=== PATIENT | female | born 1940 | race Caucasian/White ===

== ENCOUNTER 2016-12-21 10:44 | Day surgery (SDC) | payer MEDICARE, OTHER ==
[~2016-12-21 10:44] MED LIST: Dexamethasone 4 MG/ML SDV ONE; Lactated Ringers 1,000 ML IV SCH; Lidocaine 1% 6 ML ONE; Lidocaine 1%/Sod Bicarbonate in NS 8.4% 1 ML Syringe IV PRN; Ondansetron 4 MG/2 ML SDV ONE; Propofol 200 MG/20 ML SDV ONE; Rocuronium 50 MG/5 ML Vial ONE; Sodium Chloride 0.9% 10 ML Syringe FLUSH PRN; fentaNYL 250 MCG/5 ML SDV ONE
--- NOTE | 2016-12-21 12:46 | PCM.PREANE ---
Preanesthetic Assessment - Anesthesia/Transfusion/Family Hx Anesthesia History: Prior Anesthesia Reaction (slight nausea) Family History of Anesthesia Reaction: No Transfusion History: No Prior Transfusion(s) - Review of Systems General: No Symptoms Pulmonary: No Symptoms Cardiovascular: No Symptoms Gastrointestinal: No symptoms Neurological: No Symptoms, Numbness (toes on right side) Other: Reports: None - Physical Assessment NPO Status Date: 12/21/16 NPO Status Time: 03:50 Pulse: 80 O2 Sat by Pulse Oximetry: 97 Respiratory Rate: 20 Blood Pressure: 151/58 Temperature: 36.8 C Vital Signs: Last Vital Signs Temp 36.8 C 12/21/16 10:50 Pulse 80 12/21/16 10:50 Resp 20 12/21/16 10:50 BP 151/58 H 12/21/16 10:50 Pulse Ox 97 12/21/16 10:50 Height: 1.57 m Weight: 70.896 kg ASA Class: 2 Mental Status: Alert & Oriented x3 Airway Class: Mallampati = 1 Dentition: Reports: [place](s), Bridge Thyro-Mental Finger Breadths: 3 Mouth Opening Finger Breadths: 3 ROM/Head Extension: Limited/Partial Lungs: Clear to auscultation, Normal respiratory effort Cardiovascular: Regular Rate, Regular Rhythm, No Murmurs - Lab Values: on chart - Imaging/EKG Impressions: EKG normal sinus rhythm - Allergies Allergies/Adverse Reactions: Allergies Allergy/AdvReac Type Severity Reaction Status Date / Time No Known Allergies Allergy Verified 12/21/16 12:03 - Blood Blood Available: No Product(s) Available: None - Anesthesia Plan Pre-Op Medication Ordered: None - Acknowledgements Anesthesia Type Planned: General Anesthesia Pt an Appropriate Candidate for the Planned Anesthesia: Yes Alternatives and Risks of Anesthesia Discussed w Pt/Guardian: Yes Pt/Guardian Understands and Agrees with Anesthesia Plan: Yes PreAnesthesia Questionnaire HEENT History: Reports: Cataract, Impaired vision Cardiovascular History: Reports: Hypertension Respiratory History: Reports: None Gastrointestinal History: Reports: GERD Other Gastrointestinal History: Colitis Genitourinary History: Reports: None 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: Musculoskeletal History: Reports: Arthritis, Osteoarthritis Neurological History: Reports: None Psychiatric History: Reports: None Endocrine/Metabolic History: Reports: Hypothyroidism Hematologic History: Reports: None Immunologic History: Reports: None Oncologic (Cancer) History: Reports: None Dermatologic History: Reports: None - Infectious Disease History Infectious Disease History: Reports: None - Past Surgical History Head Surgeries/Procedures: Reports: None HEENT Surgical History: Reports: Cataract surgery Cardiovascular Surgical History: Reports: None Respiratory Surgical History: Reports: None GI Surgical History: Reports: Colonoscopy Female Surgical History: Reports: None Endocrine Surgical History: Reports: None Neurological Surgical History: Reports: None Musculoskeletal Surgical History: Reports: Knee replacement Other Musculoskeletal Surgeries/Procedures:: Right total knee Oncologic Surgical History: Reports: None Dermatological Surgical History: Reports: None - SUBSTANCE USE Smoking Status *Q: Never Smoker Tobacco Use Within Last Twelve Months: No Second Hand Smoke Exposure: No Days Per Week of Alcohol Use: 0 Number of Drinks Per Day: 0 Total Drinks Per Week: 0 Recreational Drug Use History: No - HOME MEDS Home Medications: Home Meds Acetaminophen [Tylenol] 650 mg PO Q4H PRN 12/20/16 [History] Af Betafood 3 tab PO TID 12/20/16 [History] Aspirin/Calcium Carbonate/Mag [Aspirin Buffered 325 mg Tab] 325 mg PO BID [History] Calcium Carbonate/Vitamin D3 [Calcium 600 + Vit D 400 Softgl] 1 cap PO DAILY [History] Phytrophin 4 tab PO BEDTIME 12/20/16 [History] Vit A/C/E AC/Znox/Cupric Oxide [Eye Vitamin-Minerals Tablet] 1 tab PO DAILY [History] - CURRENT (IN HOUSE) MEDS Current Meds: Current Medications Lactated Ringer's (Ringers, Lactated) 1,000 mls @ 125 mls/hr IV ASDIRECTED [facility] Last Admin: 12/21/16 11:25 Dose: 125 mls/hr Lidocaine/Sodium Bicarbonate (Buffered Lidocaine 1% In Ns 8.4%) 0.25 ml IV ONETIME PRN PRN Reason: Prior to IV Start Last Admin: 12/21/16 11:24 Dose: 0.25 ml Sodium Chloride (Saline Flush) 10 ml FLUSH ASDIRECTED PRN PRN Reason: Keep Vein Open Discontinued Medications Dexamethasone (Dexamethasone) Confirm Administered Dose 4 mg .ROUTE .STK-MED ONE Stop: 12/21/16 09:44 Fentanyl (Sublimaze) Confirm Administered Dose 250 mcg .ROUTE .STK-MED ONE Stop: 12/21/16 10:39 Lidocaine HCl (Xylocaine-Mpf 1%) Confirm Administered Dose 6 mls @ as directed .ROUTE .STK-MED ONE Stop: 12/21/16 10:38 Ondansetron HCl (Zofran) Confirm Administered Dose 4 mg .ROUTE .STK-MED ONE Stop: 12/21/16 10:38 Propofol (Diprivan 20 Ml) Confirm Administered Dose 200 mg .ROUTE .STK-MED ONE Stop: 12/21/16 10:39 Rocuronium [place] (Zemuron) Confirm Administered Dose 50 mg .ROUTE .STK-MED ONE Stop: 12/21/16 09:44
[2016-12-21] MEDS ORDERED: LORazepam 2 MG/ML MDV IVPUSH ONE (13:00)
[2016-12-21] MEDS ORDERED: Neostigmine Methylsulfate 10 MG/10 ML MDV ONE (13:51)
--- NOTE | 2016-12-21 14:04 | PCM.POSTAN ---
POST ANESTHESIA ASSESSMENT - MENTAL STATUS Mental Status: alert, oriented - VITAL SIGNS Pulse Rate: 97 SaO2: 92 Resp Rate: 16 Blood Pressure: 157/59 Temperature: 37.3 C - RESPIRATORY Respiratory Status: respiratory rate WNL, airway patent, O2 saturation stable, supplemental oxygen - CARDIOVASCULAR CV Status: pulse rate WNL, blood pressure stable - GASTROINTESTINAL GI Status: no symptoms - PAIN Pain Score: 0 - POST OP HYDRATION Hydration Status: adequate & stable - OBSERVATIONS Free Text/Narrative:: no anesthesia complications noted
[2016-12-21] MEDS: fentaNYL 100 MCG/2 ML SDV IVPUSH PRN ×3 (14:10→14:52)
[2016-12-21] MEDS ORDERED: traMADol 50 MG Tab PO PRN (14:34)
[2016-12-21 16:10] VITALS: BP 145/53
--- NOTE | 2016-12-24 18:18 | PCM.OPNOTE ---
- General Post-Op/Procedure Note Date of Surgery/Procedure: 12/21/16 Operative Procedure(s): right total knee arthroplasty manipulation Pre Op Diagnosis: arthrofibrosis right total knee Post-Op Diagnosis: Same Anesthesia Technique: MAC Primary Surgeon: Matthieu Covington Anesthesia Provider: Brendan Bush EBL in mLs: 0 Complications: None Condition: Good
--- NOTE | 2016-12-24 19:59 | OR ---
DATE OF OPERATION: 12/21/2016 SURGEON: Matthieu Covington MD OPERATION PERFORMED: Right total knee arthroplasty manipulation. PREOPERATIVE DIAGNOSIS: Arthrofibrosis of right total knee. POSTOPERATIVE DIAGNOSIS: Arthrofibrosis of right total knee. ANESTHESIA: Technique, MAC. ANESTHESIA PROVIDER: Brendan Bush. OPERATOR CAVITY PUMP: None. ESTIMATED BLOOD LOSS: Not applicable. COMPLICATIONS: None. CONDITION: Stable. DESCRIPTION OF PROCEDURE: The patient was identified in the preop holding area. Proper site was marked and identified by the surgeon. The patient was taken back to the operating theater where after adequate anesthesia, a time-out was performed. Right lower extremity then had measurements done before manipulation, which was 4 to 72 degrees. Next, the right knee was manipulated in both extension and flexion. There was no real hard block to motion on flexion and easily be regained motion and after the end of the manipulation, I had 2 to 112 degrees of motion to the right knee with no block to motion with stable to varus and valgus stress throughout and no other signs of issues. At this time a Webril and an Chris were applied to the right lower extremity. The patient was sent to PACU in stable condition. MMODAL /[id number]
== END 2016-12-21 15:40 | disposition home or self-care (01) ==
LOC: JD.SDS 10:44
PROVIDERS: ATTEND Orthopaedic Surgery
DX: M24.661 Ankylosis, right knee (principal); Z79.82 Long term (current) use of aspirin; Z79.899 Other long term (current) drug therapy; Z96.651 Presence of right artificial knee joint; Z91.09 Other allergy status, other than to drugs and biological substances; R03.0 Elevated blood-pressure reading, without diagnosis of hypertension
CPT/HCPCS: 27570; A9270; J1100; J2405; J2710; J3010; J7120; 01380; J2704

== ENCOUNTER 2020-04-19 09:27 | Day surgery (SDC) | payer MEDICARE, OTHER ==
[~2020-04-19 09:27] MED LIST changes: +Bisacodyl 5 MG Tab PO PRN; -Dexamethasone 4 MG/ML SDV ONE; -Lidocaine 1% 6 ML ONE; +Lidocaine 1%/Sod Bicarbonate in NS 8.4% 1 ML Syringe IDERM PRN; -Lidocaine 1%/Sod Bicarbonate in NS 8.4% 1 ML Syringe IV PRN; +Magnesium Hydroxide 400 MG/5 ML Susp 30 ML Cup PO PRN; +Morphine 2 MG/ML SYRINGE IVPUSH PRN; +Morphine 8 MG, EPINEPHrine 0.3 MG, Cefuroxime 750 MG, Ketorolac 30 MG, Sodium Chloride ... PRN; +Naloxone 0.4 MG/ML SDV IVPUSH PRN; +Ondansetron 4 MG/2 ML SDV IVPUSH PRN; -Ondansetron 4 MG/2 ML SDV ONE; -Propofol 200 MG/20 ML SDV ONE; -Rocuronium 50 MG/5 ML Vial ONE; +Sennosides 8.6 MG Tab PO PRN; -fentaNYL 250 MCG/5 ML SDV ONE
[2020-04-19] MEDS ORDERED: ceFAZolin 1 GM Vial ONE ×2 (10:38→11:28)
[2020-04-19] MEDS ORDERED: Iodine/Sodium Iodide 2% Tincture 30 ML Bottle ONE (10:38)
[2020-04-19] MEDS ORDERED: Bupivacaine 0.25% 10 ML SDV ONE (10:38)
[2020-04-19] MEDS ORDERED: Vancomycin 1 GM SDV ONE (10:38)
[2020-04-19] MEDS ORDERED: Ropivacaine 0.5% 5 MG/ML 30 ML SDV ONE (10:50)
[2020-04-19] MEDS ORDERED: Midazolam 1 MG/ML 2 ML SDV ONE (10:53)
[2020-04-19] MEDS ORDERED: fentaNYL 100 MCG/2 ML SDV ONE (10:53)
[2020-04-19] MEDS ORDERED: Propofol 200 MG/20 ML SDV ONE (10:53)
[2020-04-19] MEDS ORDERED: Lidocaine 1% 4 ML ONE (10:57)
--- NOTE | 2020-04-19 11:56 | PCM.PREANE ---
Preanesthetic Assessment - Procedure Proposed Procedure: Left TKR - Anesthesia/Transfusion/Family Hx Anesthesia History: Prior Anesthesia Reaction (slight nausea) Transfusion History: No Prior Transfusion(s) - Review of Systems General: No Symptoms Pulmonary: No Symptoms Cardiovascular: No Symptoms Gastrointestinal: No Symptoms Neurological: No Symptoms Other: Reports: None - Physical Assessment Vital Signs: Last Vital Signs Temp 97.1 F 04/19/20 09:35 Pulse 87 04/19/20 09:35 Resp 20 04/19/20 09:35 BP 184/60 H 04/19/20 09:35 Pulse Ox 95 04/19/20 09:35 Height: 1.55 m Weight: 77.111 kg ASA Class: 2 Mental Status: Alert & Oriented x3 Airway Class: Mallampati = 1 Dentition: Reports: Normal Dentition, [place](s), Bridge Thyro-Mental Finger Breadths: 3 Mouth Opening Finger Breadths: 3 ROM/Head Extension: Full Lungs: Clear to Auscultation, Normal Respiratory Effort Cardiovascular: Regular Rate, Regular Rhythm - Lab Values: Laboratory Last Values COVID-19 PCR Not detected (NOT DETECT) 04/15/20 11:30 MRSA (PCR) Negative 03/31/20 15:11 - Allergies Allergies/Adverse Reactions: Allergies Allergy/AdvReac Type Severity Reaction Status Date / Time tramadol Allergy Cannot Verified 04/19/20 09:51 Remember - Acknowledgements Anesthesia Type Planned: Spinal, Regional Block (adductor canal block for postoperative pain) Pt an Appropriate Candidate for the Planned Anesthesia: Yes Alternatives and Risks of Anesthesia Discussed w Pt/Guardian: Yes Pt/Guardian Understands and Agrees with Anesthesia Plan: Yes PreAnesthesia Questionnaire HEENT History: Reports: Cataract, Impaired Vision Cardiovascular History: Reports: Hypertension Respiratory History: Reports: None Gastrointestinal History: Reports: GERD Other Gastrointestinal History: Colitis Genitourinary History: Reports: None 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: Musculoskeletal History: Reports: Arthritis, Osteoarthritis Neurological History: Reports: None Psychiatric History: Reports: None Endocrine/Metabolic History: Reports: Hypothyroidism Hematologic History: Reports: None Immunologic History: Reports: None Oncologic (Cancer) History: Reports: None Dermatologic History: Reports: None - Infectious Disease History Infectious Disease History: Reports: None - Past Surgical History HEENT Surgical History: Reports: Cataract Surgery Musculoskeletal Surgical History: Reports: Knee Replacement - HOME MEDS Home Medications: Home Meds Acetaminophen [Tylenol] 650 mg PO Q4H PRN 12/20/16 [History] Af Betafood 3 tab PO TID 12/20/16 [History] Aspirin/Calcium Carbonate/Mag [Aspirin Buffered 325 mg Tab] 325 mg PO BID 12/20/16 [History] Calcium Carbonate/Vitamin D3 [Calcium 600 + Vit D 400 Softgl] 1 cap PO DAILY 12/20/16 [History] Phytrophin 4 tab PO BEDTIME 12/20/16 [History] Vit A/C/E AC/Znox/Cupric Oxide [Eye Vitamin-Minerals Tablet] 1 tab PO DAILY 12/20/16 [History] - CURRENT (IN HOUSE) MEDS Current Meds: Current Medications Hydrocodone Bitart/Acetaminophen ([place] 325-5 Mg) 1 - 2 tab PO Q4H PRN PRN Reason: Pain Aspirin (Ecotrin) 325 mg PO BID NONA Bisacodyl (Dulcolax) 5 mg PO DAILY PRN PRN Reason: Constipation Morphine Sulfate 8 mg/Epinephrine HCl 0.3 mg/Cefuroxime Sodium 750 mg/Ketorolac Tromethamine 30 mg/Sodium Chloride 7.9 ml 0 mg .XX ASDIRECTED PRN PRN Reason: Pain Stop: 04/19/20 13:00 Cyclobenzaprine HCl (Flexeril) 5 mg PO BID PRN PRN Reason: Spasms Docusate Sodium (Colace) 100 mg PO BID NONA Famotidine (Pepcid) 20 mg PO Q12H NONA Lactated Ringer's (Ringers, Lactated) 1,000 mls @ 125 mls/hr IV ASDIRECTED [facility] Stop: 04/19/20 23:00 Last Admin: 04/19/20 10:00 Dose: 125 mls/hr Documented by: Cefazolin Sodium/Dextrose 2 gm (/ Premix) 50 mls @ 100 mls/hr IV Q8H [facility] Stop: 04/20/20 11:29 Ketorolac Tromethamine (Toradol) 15 mg IVPUSH Q6H PRN PRN Reason: Pain Lidocaine/Sodium Bicarbonate (Buffered Lidocaine 1% In Ns 8.4%) 0.25 ml IDERM ONETIME PRN PRN Reason: Prior to IV Start Stop: 04/19/20 18:00 Last Admin: 04/19/20 10:00 Dose: 0.25 ml Documented by: Magnesium Hydroxide (Milk Of Magnesia) 30 ml PO BID PRN PRN Reason: Constipation Morphine Sulfate (Morphine) 2 mg IVPUSH Q2H PRN PRN Reason: Breakthrough Pain Naloxone HCl (Narcan) 0.1 mg IVPUSH Q5M PRN PRN Reason: Oversedation Ondansetron HCl (Zofran) 4 mg IVPUSH Q6H PRN PRN Reason: Nausea/Vomiting Senna (Senna) 8.6 mg PO BID PRN PRN Reason: Constipation Sodium Chloride (Saline Flush) 10 ml FLUSH ASDIRECTED PRN PRN Reason: Keep Vein Open Stop: 04/19/20 18:00 Discontinued Medications Bupivacaine HCl (Sensorcaine-Mpf 0.25%) Confirm Administered Dose 30 ml .ROUTE .STK-MED ONE Stop: 04/19/20 10:39 Cefazolin Sodium (Ancef) Confirm Administered Dose 2 gm .ROUTE .STK-MED ONE Stop: 04/19/20 10:39 Cefazolin Sodium (Ancef) Confirm Administered Dose 2 gm .ROUTE .STK-MED ONE Stop: 04/19/20 11:29 Fentanyl (Sublimaze) Confirm Administered Dose 100 mcg .ROUTE .STK-MED ONE Stop: 04/19/20 10:54 Lidocaine HCl (Xylocaine-Mpf 1%) Confirm Administered Dose 4 mls @ as directed .ROUTE .STK-MED ONE Stop: 04/19/20 10:58 Iodine (Iodine 2% Mild Tincture) Confirm Administered Dose 30 ml .ROUTE .STK-MED ONE Stop: 04/19/20 10:39 Midazolam HCl (Versed 1 Mg/Ml) Confirm Administered Dose 2 mg .ROUTE .STK-MED ONE Stop: 04/19/20 10:54 Propofol (Diprivan 20 Ml) Confirm Administered Dose 400 mg .ROUTE .STK-MED ONE Stop: 04/19/20 10:54 Ropivacaine (Naropin 0.5%) Confirm Administered Dose 30 ml .ROUTE .STK-MED ONE Stop: 04/19/20 10:51 Tranexamic Acid (Cyklokapron) Confirm Administered Dose 1,000 mg .ROUTE .STK-MED ONE Stop: 04/19/20 10:39 Vancomycin HCl (Vancomycin) Confirm Administered Dose 1 gm .ROUTE .STK-MED ONE Stop: 04/19/20 10:39
--- NOTE | 2020-04-19 13:44 | PCM.POSTAN ---
POST ANESTHESIA ASSESSMENT - MENTAL STATUS Mental Status: Somnolent - VITAL SIGNS Vital Signs: Last Vital Signs Temp 98.0 F 04/19/20 13:23 Pulse 87 04/19/20 09:35 Resp 16 04/19/20 13:23 BP 108/38 L 04/19/20 13:23 Pulse Ox 97 04/19/20 13:23 - RESPIRATORY Respiratory Status: Respiratory Rate WNL, Airway Patent, O2 Saturation Stable - CARDIOVASCULAR CV Status: Pulse Rate WNL, Blood Pressure Stable - GASTROINTESTINAL GI Status: No Symptoms - PAIN Pain Score: 0 (post SAB) - POST OP HYDRATION Hydration Status: Adequate & Stable
--- NOTE | 2020-04-19 13:53 | PCM.PRNOTE ---
- Free Text/Narrative Note: Postoperative regional pain control requested by surgeon. Pre-op Dx: Lt knee osteoarthritis. Post-op Rx: Total Lt knee arthroplasty. Procedure: Rt Adductor canal block with U/S guidance Requesting physician: Dr. Matthieu Pyle Risks and benefits discussed with the patient preoperatively including infection, bleeding, incomplete or failed block, possible nerve damage, local anesthetic toxicity. Permit signed. Patient after spinal anesthesia post surgery in PACU, stable , alert and awake. Time out performed. Left mid-thigh was prepped with Chloraprep x 1 and allowed to dry. Under aseptic technique, the left femoral artery and sartorius muscle were identified under ultrasound prior to needle insertion. 4" Stimuplex needle #22 [id number] was inserted under US guidance. Under direct visualization of needle tip the injection of 0.5% Ropivacaine with 1:200k epinephrine, total of 30 mls in divided doses, maintaining negative aspiration was completed without problems. No local anesthetic toxicity was noted. Patient is awake, stable and tolerated the procedure well. Time: 13:32 - 13:37 Please see attached U/S pictures.
[2020-04-19] MEDS ORDERED: Ondansetron 4 MG/2 ML SDV ONE (13:59)
--- NOTE | 2020-04-19 14:38 | CR ---
Left knee: AP and lateral views of the left knee were obtained. Comparison: No previous knee study. Knee prosthesis is seen. Components are aligned. Soft tissue air is noted from the surgical procedure. Impression: 1. Satisfactory postop radiographic appearance of recently placed left knee prosthesis. Diagnostic code #2 This report was dictated in MDT
[2020-04-19] MEDS ORDERED: Cyclobenzaprine 10 MG Tab PO PRN (15:00)
[2020-04-19] MEDS: Acetaminophen/HYDROcodone 325-5 MG Tab PO PRN ×2 (17:57→23:54)
[2020-04-19] MEDS: ceFAZolin 2 GM in Premix Bag 1 BAG IV SCH (18:11)
[2020-04-19] MEDS: Famotidine 20 MG Tab PO SCH (21:13)
[2020-04-19] MEDS: Docusate Sodium 100 MG Cap PO SCH (21:14)
[2020-04-19] MEDS: Ketorolac 15 MG/ML SDV IVPUSH PRN (23:55)
[2020-04-20] MEDS: ceFAZolin 2 GM in Premix Bag 1 BAG IV SCH ×2 (02:54→10:41)
--- NOTE | 2020-04-20 08:18 | PCM48HPAN ---
Post Anesthesia Note - EVALUATION WITHIN 48HRS OF ANESTHETIC Vital Signs in Normal Range: Yes Patient Participated in Evaluation: Yes Respiratory Function Stable: Yes Airway Patent: Yes Cardiovascular Function Stable: Yes Hydration Status Stable: Yes Pain Control Satisfactory: Yes Nausea and Vomiting Control Satisfactory: Yes Mental Status Recovered: Yes Vital Signs: Last Vital Signs Temp 36.4 C 04/20/20 04:00 Pulse 61 04/20/20 03:41 Resp 14 04/20/20 03:41 BP 127/48 L 04/20/20 03:41 Pulse Ox 95 04/20/20 03:41 - COMMENTS/OBSERVATIONS Free Text/Narrative:: no anesthesia complications noted
--- NOTE | 2020-04-20 08:27 | PCM.SURGPN ---
- General Info Date of Service: 04/20/20 POD#: 1 Functional Status: Reports: Pain Controlled, Tolerating Diet, Ambulating, Urinating, Incentive Spirometry - Review of Systems General: Denies: Fever, Chills Pulmonary: Denies: Shortness of Breath Cardiovascular: Denies: Chest Pain Gastrointestinal: Denies: Abdominal Pain Genitourinary: Denies: Dysuria - Patient Data Vitals - Most Recent: Last Vital Signs Temp 97.5 F 04/20/20 04:00 Pulse 61 04/20/20 03:41 Resp 14 04/20/20 03:41 BP 127/48 L 04/20/20 03:41 Pulse Ox 95 04/20/20 03:41 Weight - Most Recent: 170 lb I&O - Last 24 Hours: Intake & Output 04/19/20 04/20/20 04/20/20 22:59 06:59 14:59 Intake Total 360 100 Balance 360 100 Lab Results Last 24 Hrs: Laboratory Results - last 24 hr 04/20/20 04/20/20 Range/Units 05:44 05:44 WBC 10.76 H (3.98-10.04) K/mm3 RBC 4.19 (3.98-5.22) M/mm3 Hgb 12.0 (11.2-15.7) gm/dl Hct 36.2 (34.1-44.9) % MCV 86.4 (79.4-94.8) fl MCH 28.6 (25.6-32.2) pg MCHC 33.1 (32.2-35.5) g/dl RDW Std Deviation 41.3 (36.4-46.3) fL Plt Count 205 D (182-369) K/mm3 MPV 9.4 (9.4-12.3) fl Sodium 135 L (136-145) mEq/L Potassium 4.4 (3.5-5.1) mEq/L Chloride 102 (98-107) mEq/L Carbon Dioxide 27 (21-32) mEq/L Anion Gap 10.4 (5-15) BUN 15 (7-18) mg/dL Creatinine 0.8 (0.55-1.02) mg/dL Est Cr Clr Drug Dosing 43.03 mL/min Estimated GFR (MDRD) > 60 (>60) mL/min BUN/Creatinine Ratio 18.8 H (14-18) Glucose 155 H (83-115) mg/dL Calcium 8.3 L (8.5-10.1) mg/dL Total Bilirubin 0.3 (0.2-1.0) mg/dL AST 27 (15-37) U/L ALT 28 (14-59) U/L Alkaline Phosphatase 51 (46-116) U/L Total Protein 6.2 L (6.4-8.2) g/dl Albumin 3.0 L (3.4-5.0) g/dl Globulin 3.2 gm/dL Albumin/Globulin Ratio 0.9 L (1-2) Med Orders - Current: Current Medications Hydrocodone Bitart/Acetaminophen ([place] 325-5 Mg) 1 - 2 tab PO Q4H PRN PRN Reason: Pain Last Admin: 04/19/20 23:54 Dose: 1 tab Documented by: Aspirin (Ecotrin) 325 mg PO BID [facility] Bisacodyl (Dulcolax) 5 mg PO DAILY PRN PRN Reason: Constipation Cyclobenzaprine HCl (Flexeril) 5 mg PO BID PRN PRN Reason: Spasms Docusate Sodium (Colace) 100 mg PO BID [facility] Last Admin: 04/19/20 21:14 Dose: 100 mg Documented by: Famotidine (Pepcid) 20 mg PO Q12H [facility] Last Admin: 04/19/20 21:13 Dose: 20 mg Documented by: Cefazolin Sodium/Dextrose 2 gm (/ Premix) 50 mls @ 100 mls/hr IV Q8H [facility] Stop: 04/20/20 11:29 Last Admin: 04/20/20 02:54 Dose: 100 mls/hr Documented by: Ketorolac Tromethamine (Toradol) 15 mg IVPUSH Q6H PRN PRN Reason: Pain Last Admin: 04/19/20 23:55 Dose: 15 mg Documented by: Magnesium Hydroxide (Milk Of Magnesia) 30 ml PO BID PRN PRN Reason: Constipation Morphine Sulfate (Morphine) 2 mg IVPUSH Q2H PRN PRN Reason: Breakthrough Pain Naloxone HCl (Narcan) 0.1 mg IVPUSH Q5M PRN PRN Reason: Oversedation Ondansetron HCl (Zofran) 4 mg IVPUSH Q6H PRN PRN Reason: Nausea/Vomiting Senna (Senna) 8.6 mg PO BID PRN PRN Reason: Constipation Discontinued Medications Bupivacaine HCl (Sensorcaine-Mpf 0.25%) Confirm Administered Dose 30 ml .ROUTE .STK-MED ONE Stop: 04/19/20 10:39 Last Admin: 04/19/20 12:46 Dose: 30 ml Documented by: Cefazolin Sodium (Ancef) Confirm Administered Dose 2 gm .ROUTE .STK-MED ONE Stop: 04/19/20 10:39 Last Admin: 04/19/20 12:42 Dose: 2 gm Documented by: Cefazolin Sodium (Ancef) Confirm Administered Dose 2 gm .ROUTE .STK-MED ONE Stop: 04/19/20 11:29 Morphine Sulfate 8 mg/Epinephrine HCl 0.3 mg/Cefuroxime Sodium 750 mg/Ketorolac Tromethamine 30 mg/Sodium Chloride 7.9 ml 0 mg .XX ASDIRECTED PRN PRN Reason: Pain Stop: 04/19/20 13:00 Last Admin: 04/19/20 12:46 Dose: 788.3 mg Documented by: Fentanyl (Sublimaze) Confirm Administered Dose 100 mcg .ROUTE .STK-MED ONE Stop: 04/19/20 10:54 Lactated Ringer's (Ringers, Lactated) 1,000 mls @ 125 mls/hr IV ASDIRECTED [facility] Stop: 04/19/20 23:00 Last Admin: 04/19/20 10:00 Dose: 125 mls/hr Documented by: Lidocaine HCl (Xylocaine-Mpf 1%) Confirm Administered Dose 4 mls @ as directed .ROUTE .STK-MED ONE Stop: 04/19/20 10:58 Iodine (Iodine 2% Mild Tincture) Confirm Administered Dose 30 ml .ROUTE .STK-MED ONE Stop: 04/19/20 10:39 Last Admin: 04/19/20 12:40 Dose: 18 ml Documented by: Lidocaine/Sodium Bicarbonate (Buffered Lidocaine 1% In Ns 8.4%) 0.25 ml IDERM ONETIME PRN PRN Reason: Prior to IV Start Stop: 04/19/20 18:00 Last Admin: 04/19/20 10:00 Dose: 0.25 ml Documented by: Midazolam HCl (Versed 1 Mg/Ml) Confirm Administered Dose 2 mg .ROUTE .STK-MED ONE Stop: 04/19/20 10:54 Ondansetron HCl (Zofran) Confirm Administered Dose 4 mg .ROUTE .STK-MED ONE Stop: 04/19/20 14:00 Propofol (Diprivan 20 Ml) Confirm Administered Dose 400 mg .ROUTE .STK-MED ONE Stop: 04/19/20 10:54 Ropivacaine (Naropin 0.5%) Confirm Administered Dose 30 ml .ROUTE .STK-MED ONE Stop: 04/19/20 10:51 Sodium Chloride (Saline Flush) 10 ml FLUSH ASDIRECTED PRN PRN Reason: Keep Vein Open Stop: 04/19/20 18:00 Tranexamic Acid (Cyklokapron) Confirm Administered Dose 1,000 mg .ROUTE .STK-MED ONE Stop: 04/19/20 10:39 Last Admin: 04/19/20 12:59 Dose: 1,000 mg Documented by: Vancomycin HCl (Vancomycin) Confirm Administered Dose 1 gm .ROUTE .STK-MED ONE Stop: 04/19/20 10:39 Last Admin: 04/19/20 12:52 Dose: 1 gm Documented by: - Exam Wound/Incisions: Dressing Dry and Intact General: Alert, Cooperative, No Acute Distress Lungs: Normal Respiratory Effort Extremities: Other (NVS intact for BLE. Rodrigo's negative for BLE. ) Sepsis Event Note - Evaluation Sepsis Screening Result: No Definite Risk - Focused Exam Vital Signs: Vital Signs Temp Temp Pulse Resp BP BP Pulse Ox 04/20/20 04:00 97.5 F 04/20/20 03:41 61 14 127/48 L 95 04/19/20 23:57 142/78 H 04/19/20 23:56 97.7 F 75 16 94 L 04/19/20 20:30 97.5 F - Problem List Review Problem List Initiated/Reviewed/Updated: Yes - My Orders Last 24 Hours: Active Orders 24 hr Category Date Time Status Communication Order [RC] ASDIRECTED Care 04/20/20 08:21 Ordered Ready for Discharge [RC] PER UNIT ROUTINE Care 04/20/20 08:24 Ordered Regular Diet [DIET] Diet 04/19/20 Lunch Active Aspirin [Ecotrin] Med 04/20/20 09:00 Active 325 mg PO BID Cyclobenzaprine [Flexeril] Med 04/19/20 15:00 Active 5 mg PO BID PRN Docusate Sodium [Colace] Med 04/19/20 21:00 Active 100 mg PO BID Famotidine [Pepcid] Med 04/19/20 21:00 Active 20 mg PO Q12H Ketorolac [Toradol] Med 04/19/20 14:00 Active 15 mg IVPUSH Q6H PRN ceFAZolin [Ancef] 2 gm Med 04/19/20 19:00 Active Premix Bag 1 bag IV Q8H Medication Orders Hydrocodone Bitart/Acetaminophen ([place] 325-5 Mg) 1 - 2 tab PO Q4H PRN PRN Reason: Pain Last Admin: 04/19/20 23:54 Dose: 1 tab Documented by: Admin: 04/19/20 17:57 Dose: 1 tab Documented by: GABINO Aspirin (Ecotrin) 325 mg PO BID NONA Bisacodyl (Dulcolax) 5 mg PO DAILY PRN PRN Reason: Constipation Cyclobenzaprine HCl (Flexeril) 5 mg PO BID PRN PRN Reason: Spasms Docusate Sodium (Colace) 100 mg PO BID [facility] Last Admin: 04/19/20 21:14 Dose: 100 mg Documented by: YIFAN Famotidine (Pepcid) 20 mg PO Q12H [facility] Last Admin: 04/19/20 21:13 Dose: 20 mg Documented by: YIFAN Cefazolin Sodium/Dextrose 2 gm (/ Premix) 50 mls @ 100 mls/hr IV Q8H [facility] Stop: 04/20/20 11:29 Last Admin: 04/20/20 02:54 Dose: 100 mls/hr Documented by: Infusion: 04/19/20 18:41 Dose: 100 mls/hr Documented by: Admin: 04/19/20 18:11 Dose: 100 mls/hr Documented by: GABINO Ketorolac Tromethamine (Toradol) 15 mg IVPUSH Q6H PRN PRN Reason: Pain Last Admin: 04/19/20 23:55 Dose: 15 mg Documented by: YIFAN Magnesium Hydroxide (Milk Of Magnesia) 30 ml PO BID PRN PRN Reason: Constipation Morphine Sulfate (Morphine) 2 mg IVPUSH Q2H PRN PRN Reason: Breakthrough Pain Naloxone HCl (Narcan) 0.1 mg IVPUSH Q5M PRN PRN Reason: Oversedation Ondansetron HCl (Zofran) 4 mg IVPUSH Q6H PRN PRN Reason: Nausea/Vomiting Senna (Senna) 8.6 mg PO BID PRN PRN Reason: Constipation - Assessment Assessment (Free Text/Narrative):: POD#1 - left TKA - Plan Plan (Free Text/Narrative):: 1. Hgb 12.0. GFR > 60. 2. Discharge to home today if inpt therapy goals met. 3. Outpatient therapy. 4. 325mg ASA PO BID, frequent mobility, TEDs. The pt's case was discussed with Dr. Covington.
[2020-04-20] MEDS: Ketorolac 15 MG/ML SDV IVPUSH PRN (08:59)
[2020-04-20] MEDS: Famotidine 20 MG Tab PO SCH (08:59)
[2020-04-20] MEDS: Docusate Sodium 100 MG Cap PO SCH (08:59)
[2020-04-20] MEDS ORDERED: Aspirin 325 MG Tab.EC PO SCH (09:00)
[2020-04-20 09:15] VITALS: BP 133/53; PULSE 63
[2020-04-20] MEDS: Acetaminophen/HYDROcodone 325-5 MG Tab PO PRN (13:08)
[2020-04-21] MEDS ORDERED: Famotidine 20 MG Tab PO SCH (09:00)
--- NOTE | 2020-04-21 16:35 | PCM.OPNOTE ---
- General Post-Op/Procedure Note Date of Surgery/Procedure: 04/19/20 Operative Procedure(s): left total knee arthroplasty Pre Op Diagnosis: left knee osteoarthrosis Post-Op Diagnosis: Same Anesthesia Technique: Local, MAC, Spinal Primary Surgeon: Matthieu Covington Anesthesia Provider: Simone [employer] Director: Martha [employer] Director: Karen Villanueva in mLs: 5 Complications: None Condition: Good Free Text/Narrative:: 3 2 9mm 29x9
--- NOTE | 2020-04-21 17:20 | OR ---
DATE OF OPERATION: 04/19/2020 SURGEON: Matthieu Covington MD OPERATION PERFORMED: Left total knee arthroplasty. PREOPERATIVE DIAGNOSIS: Left knee osteoarthrosis. POSTOPERATIVE DIAGNOSIS: Left knee osteoarthrosis. ANESTHESIA: Local MAC with spinal. ANESTHESIA PROVIDER: Ines Malin. ASSISTANTS: Martha Nice PA-C, and Karen Villanueva LPN. ESTIMATED BLOOD LOSS: 5 mL. COMPLICATIONS: None. CONDITION: Stable. IMPLANTS: 1. Matthias size 3 cemented PS femur. 2. Matthias size 2 [place] tibial baseplate. 3. Matthias size 2, 9 mm PS X3 polyethylene. 4. [place] size 29 x 9 mm cemented asymmetric patella. DESCRIPTION OF PROCEDURE: The patient was identified in the preop holding area. Proper site was marked and identified by the surgeon. The patient was taken back to the operating theater. After adequate anesthesia, the patient's left lower extremity had a nonsterile tourniquet applied and it was sterilely prepped and draped in the usual sterile fashion. OR time-out was performed. The patient received 2 g IV Ancef. At this time, the left lower extremity was exsanguinated. Tourniquet was insufflated to 300 mmHg. Standard medial parapatellar incision was made. Medial parapatellar arthrotomy was created. Deep fibers of the MCL were raised and anterior fat pad was resected. At this time, attention was turned to the patella. Patella measured 21, it was resected to a 13 for 29 x 9 mm patella. Drill holes were then drilled and found to be in adequate position. The drill was then drilled in the distal femur and the intramedullary distal femoral cutting guide was then placed. 10 mm was resected off the distal femur and was found to be an adequate resection. Sizing guide was placed. It was found to be a size 3 cemented PS femur that was shown on the implant record at the beginning of this dictation. The drill holes were drilled for the epicondylar axis using [place] line and epicondyles as reference. At this time, the 4-in-1 cutting block was placed. An anterior posterior and anterior and posterior chamfer cuts were then completed. Box cut was completed at this time. Attention was turned to the tibia. The posterior medial lateral retractors were placed. The extramedullary tibial guide was placed. It was placed in the old footprint of the ACL. It was aligned with the center of the ankle and 0 degrees of slope, 9 mm was then resected off the unaffected side. There was found to be an acceptable reduction. At this time, posterior osteophytes were removed along with medial and lateral meniscus. A trial implant was placed with a correct sized tibia that was mentioned at the beginning of the dictation. A Matthias size 2, 9 mm PS X3 polyethylene insert was then placed. The patient's knee was brought through range of motion. The patella was tracking centrally and was stable to varus and valgus stress. Alignment was found to be roughly at 0 degrees. The tibia was stamped and drilled in proper rotation. The universal tibial base plate was impacted in place. Next, the Matthias size 3 cemented PS femur impacted into place and the Matthias size 2, 9 mm PS X3 polyethylene insert was placed. The patient's knee was brought into full extension. The patella was then cemented in place at this time. One liter dilute Betadine solution was irrigated through the knee along with 3 L of pulse lavage irrigation with Ancef. Periarticular injection was then completed. The patient's knee was brought through a range of motion. Once the cement had time to set up and it was found to be stable to varus valgus stress, the patella was tracking centrally with full range of motion. At this time, a #2 barbed suture was used for closure of the medial parapatellar arthrotomy. Topical tranexamic acid was placed. 2-0 Vicryl was used subcutaneously, Prineo was used for the skin. The patient tolerated the procedure well and was sent to the PACU in stable condition. MMODAL /[id number] LONNY
== END 2020-04-20 13:30 | disposition home or self-care (01) ==
LOC: JD.SDS 09:27 → JD.MS 09:28 → JD.SDS 04-20 13:30
PROVIDERS: ATTEND Orthopaedic Surgery
DX: M17.12 Unilateral primary osteoarthritis, left knee (principal); I10 Essential (primary) hypertension; M85.80 Other specified disorders of bone density and structure, unspecified site; E03.9 Hypothyroidism, unspecified; K21.9 Gastro-esophageal reflux disease without esophagitis; Z11.59 Encounter for screening for other viral diseases; G89.18 Other acute postprocedural pain; Z79.82 Long term (current) use of aspirin; Z88.5 Allergy status to narcotic agent; Z79.899 Other long term (current) drug therapy; Z79.890 Hormone replacement therapy; Z96.651 Presence of right artificial knee joint
CPT/HCPCS: 27447; 36415; 73560; 80053; 85027; 87641; 97110; 97116; 97161; 97165; 97535; A9270; C1713; C1776; J0171; J0690; J0697; J1885; J2001; J2250; J2270; J2405; J2704; J2795; J3010; J3370; J3490; J7120; 01402; 64450; U0002